=== PATIENT | male | born 1975 | race Caucasian/White ===

== ENCOUNTER → 2018-07-30 | Outpatient (REF) | payer MEDICARE, MEDICAID ==
[2018-07-30 14:21] LABS: HEMATOCRIT 45.2 % (42.0-52.0); HEMOGLOBIN 15.7 g/dl (13.5-17.5); MEAN CORPUSCULAR HGB CONC 34.7 g/dl (32.0-36.5); MEAN CORPUSCULAR VOLUME 83.4 fl (80.0-96.0); PLATELET COUNT, AUTOMATED 218 10^3/uL (150-450); RED BLOOD COUNT 5.42 10^6/uL (4.30-6.10); RED CELL DISTRIBUTION WIDTH 13.3 % (11.5-14.5); WHITE BLOOD COUNT 5.5 10^3/uL (4.0-10.0)
[2018-07-30 14:29] LABS: ADD MANUAL DIFFER YES; DIFF SLIDE NUMBER 263; POSITIVE MORPH POS FLAG
[2018-07-30 15:07] LABS: ATYPICAL LYMPH 7 % (0-5); EOSINOPHILS 1 % (0-5); LYMPHOCYTES 12 % (16-52); MONOCYTES 8 % (0-8); NEUTROPHILS 72 % (35-75)
[2018-07-30 15:11] LABS: BASO # 0.1 10^3/uL (0.0-0.2); BASO % 0.9 % (0.0-1.0); EOS # 0.1 10^3/uL (0.0-0.50); EOS % 1.1 % (0.0-3.0); IMMATURE GRANULOCYTE % 0.2 % (0-3.0); LYMPH # 1.3 10^3/uL (1.5-4.5); LYMPH % 23.9 % (24.0-44.0); MONO # 0.4 10^3/uL (0.0-0.8); MONO % 6.4 % (0.0-5.0); NEUTROPHILS # 3.7 10^3/uL (1.8-7.7); NEUTROPHILS % 67.5 % (36.0-66.0)
[2018-07-30 15:13] LABS: ALBUMIN 3.8 GM/DL (3.2-5.2); ALKALINE PHOSPHATASE 97 U/L (45-117); ALT/SGPT 53 U/L (12-78); ANION GAP 6 MEQ/L (8-16); AST/SGOT 27 U/L (7-37); BILIRUBIN,TOTAL 0.5 MG/DL (0.2-1.0); BLOOD UREA NITROGEN 15 MG/DL (7-18); CARBON DIOXIDE LEVEL 28 MEQ/L (21-32); CHLORIDE LEVEL 109 MEQ/L (98-107); CHOLESTEROL LEVEL 208 MG/DL (<200); CHOLESTEROL RISK RATIO 4.952 (<5); CREATININE FOR GFR 1.37 MG/DL (0.70-1.30); GLOMERULAR FILTRATION RATE > 60.0 (>60); GLUCOSE, FASTING 89 MG/DL (70-100); HDL CHOLESTEROL 42 MG/DL (>40); LDL CHOLESTEROL 143 MG/DL (<100); NON-HDL-C 166 MG/DL; POTASSIUM SERUM 4.1 MEQ/L (3.5-5.1); SODIUM LEVEL 143 MEQ/L (136-145); THYROID STIMULATING HORMONE 0.807 uIU/ML (0.358-3.740); TOTAL 25(OH) VITAMIN D 22.7 NG/ML (30.0-100.0); TOTAL PROTEIN 7.6 GM/DL (6.4-8.2); TRIGLYCERIDES LEVEL 117 MG/DL (<150)
[2018-07-30 15:18] LABS: PLATELET ESTIMATE NORMAL (NORMAL)
== END ==
LOC: M LABDRAW1 14:06
DX: F32.1 Major depressive disorder, single episode, moderate (principal)
CPT/HCPCS: 84443

== ENCOUNTER 2018-09-14 14:32 | Emergency (ER) | payer MEDICARE, MEDICAID ==
[2018-09-14] MEDS: predniSONE 20 MG TAB PO (17:26)
[2018-09-14] MEDS: CYCLOBENZAPRINE 10 MG TAB PO (17:26)
[2018-09-14] MEDS: MORPHINE 10 MG/ML 1ML VIAL (J2270) IM (17:27)
== END 2018-09-14 17:59 | disposition home or self-care (01) ==
LOC: M ED 14:32
DX: M54.41 Lumbago with sciatica, right side (principal); M54.42 Lumbago with sciatica, left side
CPT/HCPCS: J2270

== ENCOUNTER 2018-11-23 12:17 | Emergency (ER) | payer MEDICARE, MEDICAID ==
[~2018-11-23] VITALS: Ht 172.7 cm; Wt 77.3 kg
[~2018-11-23 12:17] MED LIST: CYCL10TA PO; PRED20TA PO
[2018-11-23 12:46] LABS: BASO # 0.1 10^3/uL (0.0-0.2); BASO % 0.7 % (0.0-1.0); EOS # 0.1 10^3/uL (0.0-0.50); EOS % 0.7 % (0.0-3.0); HEMATOCRIT 44.4 % (42.0-52.0); HEMOGLOBIN 16.1 g/dl (13.5-17.5); LYMPH # 1.4 10^3/uL (1.5-4.5); LYMPH % 19.3 % (24.0-44.0); MEAN CORPUSCULAR HEMOGLOBIN 28.8 pg (27.0-33.0); MEAN CORPUSCULAR HGB CONC 36.3 g/dl (32.0-36.5); MEAN CORPUSCULAR VOLUME 79.4 fl (80.0-96.0); MONO # 0.4 10^3/uL (0.0-0.8); MONO % 5.5 % (0.0-5.0); NEUTROPHILS # 5.3 10^3/uL (1.8-7.7); NEUTROPHILS % 73.5 % (36.0-66.0); PLATELET COUNT, AUTOMATED 224 10^3/uL (150-450); RED BLOOD COUNT 5.59 10^6/uL (4.30-6.10); WHITE BLOOD COUNT 7.2 10^3/uL (4.0-10.0)
[2018-11-23 13:25] LABS: ALBUMIN 4.1 GM/DL (3.2-5.2); ALT/SGPT 29 U/L (12-78); BILIRUBIN,DIRECT 0.1 MG/DL (0.0-0.2); BILIRUBIN,TOTAL 0.5 MG/DL (0.2-1.0); BLOOD UREA NITROGEN 19 MG/DL (7-18); CALCIUM LEVEL 9.2 MG/DL (8.5-10.1); CARBON DIOXIDE LEVEL 21 MEQ/L (21-32); CHLORIDE LEVEL 105 MEQ/L (98-107); CK-MB VALUE MASS < 1.0 NG/ML (<3.6); CPK CREATINE PHOSPHOKINASE 123 U/L (39-308); CREATININE FOR GFR 1.36 MG/DL (0.70-1.30); FREE T4 1.04 NG/DL (0.76-1.46); GLOMERULAR FILTRATION RATE > 60.0 (>60); GLUCOSE, FASTING 127 MG/DL (70-100); LIPASE 209 U/L (73-393); MB/CK RELATIVE INDEX 0.81 (< OR =4); NT-PRO BNP 17 PG/ML (<125); POTASSIUM SERUM 4.3 MEQ/L (3.5-5.1); SODIUM LEVEL 138 MEQ/L (136-145); THYROID STIMULATING HORMONE 0.707 uIU/ML (0.358-3.740); TOTAL PROTEIN 7.4 GM/DL (6.4-8.2); TROPONIN I < 0.02 NG/ML (< 0.10)
[2018-11-23] MEDS ORDERED: NS 1,000 ML IV ONE (13:30)
[2018-11-23] MEDS ORDERED: KETOROLAC 30 MG/ML VIAL (J1885) IV ONE (13:45)
[2018-11-23] MEDS ORDERED: ISOVUE-370 76% 100ML VIAL (Q9967) As Ordered ONE (14:09)
--- NOTE | 2018-11-23 14:53 | ECGEPIP ---
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
--- NOTE | 2018-11-23 15:16 | REP ---
CT pulmonary angiogram: With IV contrast. History: Chest pain. Comparison studies: No comparison study Contrast dose: 75 cc's of Isovue [address] technique: Helical scanning is acquired and overlapping 1.5 mm and contiguous 3 mm axial images are reformatted. In addition, maximum intensity projection and multiplanar re-formation images are generated in sagittal and coronal imaging projections. CT pulmonary angiographic findings: There is good opacification of the pulmonary arterial tree. There is no CT evidence of pulmonary embolus. Thoracic aorta shows no evidence of aneurysm or dissection. The left vertebral artery takes a direct aortic origin which is a normal variant. Maximal intensity projection images show no vessel cutoff or filling defect in the pulmonary arterial tree. There is no evidence of hilar or mediastinal mass or adenopathy. No pleural or pericardial effusion is seen. There is a granulomatous calcification in the spleen. No adrenal lesion is seen. The lung andrew are clear. No bony abnormalities seen. Impression: Negative CT pulmonary angiogram with IV contrast. No CT evidence of pulmonary embolus. No active disease. Electronically Signed by Julio Cesar Cordoba MD 11/23/2018 03:08 P
[2018-11-23] MEDS ORDERED: KETO10TAB PO (15:33)
[2018-11-23 16:09] VITALS: BP 125/86
== END 2018-11-23 16:05 | disposition home or self-care (01) ==
LOC: M ED 12:17
DX: M94.0 Chondrocostal junction syndrome [Tietze] (principal); R00.0 Tachycardia, unspecified; R06.02 Shortness of breath; F17.220 Nicotine dependence, chewing tobacco, uncomplicated
CPT/HCPCS: 36415; 71275; 80048; 80076; 82550; 82553; 83690; 83880; 84439; 84443; 84484; 85025; 93005; 93041; 94760; 96361; 96374; 99285; J1885; Q9967

== ENCOUNTER 2019-01-04 15:46 | Emergency (ER) | payer MEDICARE ==
[~2019-01-04] VITALS: Ht 172.7 cm; Wt 77.3 kg
[~2019-01-04 15:46] MED LIST changes: +KETO10TAB PO
[2019-01-04 15:47] VITALS: BP 128/78
[2019-01-04] MEDS ORDERED: hydrocodone (15:55)
[2019-01-04] MEDS ORDERED: PRED20TA PO (16:35)
[2019-01-04] MEDS ORDERED: CYCL10TA PO (16:35)
[2019-01-04] MEDS ORDERED: CYCLOBENZAPRINE 10 MG TAB PO ONE (16:45)
[2019-01-04] MEDS ORDERED: predniSONE 20 MG TAB PO ONE (16:45)
== END 2019-01-04 16:47 | disposition home or self-care (01) ==
LOC: M ED 15:46
DX: M54.5 Low back pain (principal); G89.29 Other chronic pain; Z87.442 Personal history of urinary calculi; Z98.890 Other specified postprocedural states

== ENCOUNTER 2019-06-04 13:18 | Emergency (ER) | payer MEDICARE, MEDICAID ==
[~2019-06-04] VITALS: Ht 172.7 cm; Wt 82.6 kg
[~2019-06-04 13:18] MED LIST changes: +hydrocodone
[2019-06-04] MEDS ORDERED: ACETAMINOPHEN 500 MG TAB PO ONE (14:15)
[2019-06-04] MEDS ORDERED: diazePAM 5 MG TAB PO ONE (14:15)
[2019-06-04] MEDS ORDERED: LIDOCAINE 5% (LIDODERM) PATCH TD ONE (14:15)
[2019-06-04] MEDS ORDERED: KETOROLAC 30 MG/ML VIAL (J1885) IM ONE (14:15)
[2019-06-04] MEDS ORDERED: VALI5TAB PO (14:41)
[2019-06-04] MEDS ORDERED: NAPR-837 PO (14:41)
[2019-06-04 14:58] VITALS: BP 108/61
--- NOTE | 2019-06-04 15:16 | REP ---
LUMBOSACRAL SPINE: Five views of the lumbosacral spine are performed. There is no compression fracture or malalignment. There is normal lumbar lordosis with no spondylolysis or spondylolisthesis. Disc spaces appear well preserved. Posterior elements appear intact of the lumbar region. There is spina bifida occulta of S1 which is a normal variant. IMPRESSION: No fracture or dislocation. Electronically Signed by Jamie Gillis MD 06/08/2019 05:37 P
== END 2019-06-04 15:00 | disposition home or self-care (01) ==
LOC: M ED 13:18
DX: M54.42 Lumbago with sciatica, left side (principal); M54.41 Lumbago with sciatica, right side; W55.89XA Other contact with other mammals, initial encounter; Y92.79 Other farm location as the place of occurrence of the external cause; G89.29 Other chronic pain; M54.9 Dorsalgia, unspecified; F17.220 Nicotine dependence, chewing tobacco, uncomplicated; Z87.442 Personal history of urinary calculi
CPT/HCPCS: 72110; 96372; 99283; J1885

== ENCOUNTER → 2019-12-23 | Outpatient (REF) | payer MEDICARE, MEDICAID ==
[~2019-12-23] MED LIST changes: +NAPR-837 PO; +VALI5TAB PO
[2019-12-23 14:11] LABS: HEMOGLOBIN A1c 4.9 %
[2019-12-23 14:14] LABS: CALCIUM LEVEL 9.1 MG/DL (8.5-10.1); CHOLESTEROL RISK RATIO 5.255 (<5); CREATININE FOR GFR 1.4 MG/DL (0.70-1.30); GLOMERULAR FILTRATION RATE 58.3 (>60); POTASSIUM SERUM 3.8 MEQ/L (3.5-5.1)
== END ==
LOC: M LABDRAW1 11:46
PROVIDERS: ATTEND Student in an Organized Health Care Education/Training Program
DX: Z00.00 Encounter for general adult medical examination without abnormal findings (principal); R20.0 Anesthesia of skin; Z79.899 Other long term (current) drug therapy

== ENCOUNTER → 2021-08-30 | Outpatient (REF) | payer MEDICARE, MEDICAID ==
[~2021-08-30] MED LIST changes: +CYCL-707 PO; -CYCL10TA PO
== END ==
LOC: M SFHCPLAZ 13:44
PROVIDERS: ATTEND Family Medicine
DX: R10.9 Unspecified abdominal pain (principal); K21.9 Gastro-esophageal reflux disease without esophagitis; R07.9 Chest pain, unspecified; Z13.220 Encounter for screening for lipoid disorders; Z13.1 Encounter for screening for diabetes mellitus

== ENCOUNTER → 2021-09-06 | Outpatient (CLI) | payer MEDICARE, MEDICAID ==
[2021-09-06 16:43] LABS: BASO # 0.1 10^3/uL (0.0-0.2); BASO % 0.8 % (0.0-1.0); EOS # 0.1 10^3/uL (0.0-0.5); EOS % 0.9 % (0.0-3.0); HEMATOCRIT 47.5 % (42.0-52.0); HEMOGLOBIN 16.2 g/dl (13.5-17.5); LYMPH # 2.1 10^3/uL (1.5-5.0); LYMPH % 26.3 % (24.0-44.0); MEAN CORPUSCULAR HEMOGLOBIN 28.8 pg (27.0-33.0); MEAN CORPUSCULAR HGB CONC 34.1 g/dl (32.0-36.5); MEAN CORPUSCULAR VOLUME 84.5 fl (80.0-96.0); MONO # 0.7 10^3/uL (0.0-0.8); MONO % 8.7 % (2.0-8.0); PLATELET COUNT, AUTOMATED 262 10^3/uL (150-450); RED BLOOD COUNT 5.62 10^6/uL (4.30-6.10); WHITE BLOOD COUNT 7.8 10^3/uL (4.0-10.0)
[2021-09-06 16:52] LABS: ALBUMIN 4.4 GM/DL (3.2-5.2); BILIRUBIN,TOTAL 0.6 MG/DL (0.2-1.0); CALCIUM LEVEL 9.7 MG/DL (8.5-10.1); CHOLESTEROL RISK RATIO 4.818 (<5); CREATININE FOR GFR 1.42 MG/DL (0.70-1.30); GLOMERULAR FILTRATION RATE 56.9 (>60); POTASSIUM SERUM 4.2 MEQ/L (3.5-5.1); THYROID STIMULATING HORMONE 1.35 uIU/ML (0.358-3.740); TOTAL PROTEIN 8.2 GM/DL (6.4-8.2)
[2021-09-06 17:06] LABS: HEMOGLOBIN A1c 4.9 %
== END ==
LOC: M WUC 11:33
PROVIDERS: ATTEND Student in an Organized Health Care Education/Training Program
DX: Z13.220 Encounter for screening for lipoid disorders (principal); Z13.1 Encounter for screening for diabetes mellitus; R10.9 Unspecified abdominal pain; K21.9 Gastro-esophageal reflux disease without esophagitis; R07.9 Chest pain, unspecified; Z79.899 Other long term (current) drug therapy

== ENCOUNTER → 2021-09-24 | Outpatient (CLI) | payer MEDICARE, MEDICAID ==
--- NOTE | 2021-09-24 14:37 | REP ---
INDICATION: LEFT FLANK PAIN. COMPARISON: None. TECHNIQUE: Real-time sonographic evaluation of the kidneys with Doppler FINDINGS: Multiple ultrasonographic images of the right kidney show the right kidney to measure 10.3 x 5.5 x 5.3 cm. The renal cortical echotexture is unremarkable. There are no masses. There is good corticomedullary differentiation. There is no hydronephrosis. There are no perinephric fluid collections. Multiple ultrasonographic images of the left kidney show the left kidney to measure 10.4 x 4.5 x 4.1 cm. The renal cortical echotexture is unremarkable. There are no masses. There is good corticomedullary differentiation. There is no hydronephrosis. There are no perinephric fluid collections. The urinary bladder was almost empty IMPRESSION: Unremarkable renal ultrasonography. <Electronically signed by Zeke Tirado > 09/24/21 [id number]
== END ==
LOC: M RAD 13:52
PROVIDERS: ATTEND Student in an Organized Health Care Education/Training Program
DX: R10.9 Unspecified abdominal pain (principal)

== ENCOUNTER → 2021-10-09 | Outpatient (REF) | payer MEDICARE, MEDICAID ==
[2021-10-09 13:59] LABS: APPEARANCE, URINE CLEAR (CLEAR); BACTERIA, URINE AUTO NEGATIVE (NEGATIVE); BILIRUBIN, URINE AUTO NEGATIVE (NEGATIVE); BLOOD, URINE BLOOD NEGATIVE (NEGATIVE); COLOR, URINE YELLOW (YELLOW); GLUCOSE, URINE (UA) AUTO NEGATIVE (NEGATIVE); KETONE, URINE AUTO NEGATIVE (NEGATIVE); LEUKOCYTE ESTERASE, URINE AUTO NEGATIVE (NEGATIVE); NITRITE, URINE AUTO NEGATIVE (NEGATIVE); PROTEIN, URINE AUTO NEGATIVE (NEGATIVE); RBC, URINE AUTO 0 /HPF (0-3); SPECIFIC GRAVITY URINE AUTO 1.021 (1.002-1.035); SQUAMOUS EPITHELIAL CELL UR AU 0 /HPF (0-6); UROBILINOGEN, URINE AUTO 0.2 mg/dL (0.0-2.0); WBC, URINE AUTO 1 /HPF (0-3)
[2021-10-09 14:29] LABS: MALB URINE SIEMENS 5.1 MG/L; MAU/CREAT RATIO 2.6 MCG/MG (0.0-30.0)
== END ==
LOC: M SFHCPLAZ 13:17
PROVIDERS: ATTEND Student in an Organized Health Care Education/Training Program
DX: N18.31 Chronic kidney disease, stage 3a (principal)
CPT/HCPCS: 81001; 82043; G0463

== ENCOUNTER → 2022-12-05 | Outpatient (CLI) | payer MEDICARE, MEDICAID ==
[2022-12-05 17:54] LABS: BASO % 0.6 % (0.0-1.0); EOS % 0.6 % (0.0-3.0); HEMATOCRIT 50.1 % (42.0-52.0); HEMOGLOBIN 16.8 g/dl (13.5-17.5); LYMPH # 1.8 10^3/uL (1.5-5.0); LYMPH % 26.8 % (24.0-44.0); MEAN CORPUSCULAR HEMOGLOBIN 27.9 pg (27.0-33.0); MEAN CORPUSCULAR HGB CONC 33.5 g/dl (32.0-36.5); MEAN CORPUSCULAR VOLUME 83.1 fl (80.0-96.0); MONO # 0.4 10^3/uL (0.0-0.8); MONO % 6.6 % (2.0-8.0); NEUTROPHILS # 4.3 10^3/uL (1.5-8.5); NEUTROPHILS % 65.2 % (36.0-66.0); PLATELET COUNT, AUTOMATED 262 10^3/uL (150-450); RED BLOOD COUNT 6.03 10^6/uL (4.30-6.10); WHITE BLOOD COUNT 6.5 10^3/uL (4.0-10.0)
[2022-12-05 18:05] LABS: HEMOGLOBIN A1c 4.7 % (4.0-6.0)
[2022-12-05 18:13] LABS: ALBUMIN 4.2 G/DL (3.2-5.2); ALKALINE PHOSPHATASE 119 U/L (46-116); ALT/SGPT 51 U/L (7.0-40); AST/SGOT 27 U/L (<34); BILIRUBIN,TOTAL 0.6 MG/DL (0.3-1.2); BLOOD UREA NITROGEN 14 MG/DL (9-23); CALCIUM LEVEL 9.3 MG/DL (8.5-10.1); CARBON DIOXIDE LEVEL 30 MMOL/L (20-31); CHLORIDE LEVEL 101 MMOL/L (98-107); CHOLESTEROL LEVEL 193 MG/DL (<200); CHOLESTEROL RISK RATIO 4.93 (<5); CREATININE FOR GFR 1.31 MG/DL (0.70-1.30); GLOMERULAR FILTRATION RATE > 60.0 (>60); GLUCOSE, FASTING 83 MG/DL (60-100); HDL CHOLESTEROL 39.1 MG/DL (>40); LDL CHOLESTEROL 130.3 MG/DL (<100); NON-HDL-C 154 MG/DL; POTASSIUM SERUM 4.6 MMOL/L (3.5-5.1); SODIUM LEVEL 138 MMOL/L (136-145); TOTAL PROTEIN 7.9 G/DL (5.7-8.2); TRIGLYCERIDES LEVEL 118 MG/DL (<150)
== END ==
LOC: M PLALAB 15:04
PROVIDERS: ATTEND Student in an Organized Health Care Education/Training Program
DX: Z13.1 Encounter for screening for diabetes mellitus (principal); N18.31 Chronic kidney disease, stage 3a; K21.9 Gastro-esophageal reflux disease without esophagitis; E78.00 Pure hypercholesterolemia, unspecified

== ENCOUNTER → 2023-02-18 | Outpatient (REF) | payer MEDICARE, MEDICAID ==
[2023-02-18 18:18] LABS: APPEARANCE, URINE CLEAR (CLEAR); BACTERIA, URINE AUTO NEGATIVE (NEGATIVE); BILIRUBIN, URINE AUTO NEGATIVE (NEGATIVE); BLOOD, URINE BLOOD NEGATIVE (NEGATIVE); COLOR, URINE YELLOW (YELLOW); GLUCOSE, URINE (UA) AUTO NEGATIVE (NEGATIVE); KETONE, URINE AUTO TRACE mg/dL (NEGATIVE); LEUKOCYTE ESTERASE, URINE AUTO NEGATIVE (NEGATIVE); MUCUS, URINE SMALL (NEGATIVE); NITRITE, URINE AUTO NEGATIVE (NEGATIVE); PROTEIN, URINE AUTO NEGATIVE (NEGATIVE); RBC, URINE AUTO 0 /HPF (0-3); SPECIFIC GRAVITY URINE AUTO 1.026 (1.002-1.035); SQUAMOUS EPITHELIAL CELL UR AU 0 /HPF (0-6); UROBILINOGEN, URINE AUTO 0.2 mg/dL (0.0-2.0); WBC, URINE AUTO 0 /HPF (0-3)
== END ==
LOC: M SFHCPLAZ 17:14
PROVIDERS: ATTEND Student in an Organized Health Care Education/Training Program
DX: R30.0 Dysuria (principal)

== ENCOUNTER → 2023-02-25 | Outpatient (REF) | payer MEDICARE, MEDICAID ==
[~2023-02-25] MED LIST changes: +ATOR1TAB19; +FAMO20TA5; +METH-1165 PO
== END ==
LOC: M SFHCPLAZ 13:24
PROVIDERS: ATTEND Family Medicine
DX: R30.0 Dysuria (principal); E78.00 Pure hypercholesterolemia, unspecified; Z53.9 Procedure and treatment not carried out, unspecified reason

== ENCOUNTER → 2023-02-25 | Outpatient (CLI) | payer MEDICARE, MEDICAID ==
[~2023-02-25] MED LIST changes: -ATOR1TAB19; -FAMO20TA5; -METH-1165 PO
[2023-02-25 16:04] LABS: BASO % 0.4 % (0.0-1.0); EOS % 0.6 % (0.0-3.0); HEMATOCRIT 46.4 % (42.0-52.0); LYMPH # 1.6 10^3/uL (1.5-5.0); LYMPH % 23.4 % (24.0-44.0); MEAN CORPUSCULAR HEMOGLOBIN 28.6 pg (27.0-33.0); MEAN CORPUSCULAR HGB CONC 34.5 g/dl (32.0-36.5); MONO # 0.4 10^3/uL (0.0-0.8); MONO % 6.1 % (2.0-8.0); NEUTROPHILS # 4.7 10^3/uL (1.5-8.5); NEUTROPHILS % 69.2 % (36.0-66.0); PLATELET COUNT, AUTOMATED 217 10^3/uL (150-450); RED BLOOD COUNT 5.59 10^6/uL (4.30-6.10); WHITE BLOOD COUNT 6.8 10^3/uL (4.0-10.0)
[2023-02-25 16:32] LABS: ALBUMIN 4.3 G/DL (3.2-5.2); ALKALINE PHOSPHATASE 97 U/L (46-116); ALT/SGPT 35 U/L (7.0-40); AST/SGOT 18 U/L (<34); BILIRUBIN,TOTAL 0.5 MG/DL (0.3-1.2); BLOOD UREA NITROGEN 17 MG/DL (9-23); CALCIUM LEVEL 9.6 MG/DL (8.5-10.1); CARBON DIOXIDE LEVEL 28 MMOL/L (20-31); CHLORIDE LEVEL 106 MMOL/L (98-107); CHOLESTEROL LEVEL 203 MG/DL (<200); CHOLESTEROL RISK RATIO 4.82 (<5); CREATININE FOR GFR 1.35 MG/DL (0.70-1.30); GLOMERULAR FILTRATION RATE > 60.0 (>60); GLUCOSE, FASTING 83 MG/DL (60-100); HDL CHOLESTEROL 42.1 MG/DL (>40); LDL CHOLESTEROL 134.9 MG/DL (<100); NON-HDL-C 160.9 MG/DL; POTASSIUM SERUM 4.2 MMOL/L (3.5-5.1); SODIUM LEVEL 140 MMOL/L (136-145); TOTAL PROTEIN 7.6 G/DL (5.7-8.2); TRIGLYCERIDES LEVEL 130 MG/DL (<150)
== END ==
LOC: M PLALAB 13:24
PROVIDERS: ATTEND Student in an Organized Health Care Education/Training Program
DX: R30.0 Dysuria (principal)

== ENCOUNTER 2023-03-03 07:33 | Emergency (ER) | payer MEDICARE, MEDICAID ==
[~2023-03-03] VITALS: Ht 172.7 cm; Wt 93.0 kg
[2023-03-03] MEDS ORDERED: FAMO20TA5 (07:41)
[2023-03-03] MEDS ORDERED: ATOR1TAB19 (07:41)
[2023-03-03] MEDS ORDERED: KETOROLAC 60MG 2ML VIAL IM ONE (07:50)
[2023-03-03] MEDS ORDERED: diazePAM 10MG/2ML SYRINGE IM ONE (07:50)
[2023-03-03] MEDS ORDERED: KETO10TAB PO (08:59)
[2023-03-03] MEDS ORDERED: METH-1165 PO (08:59)
[2023-03-03 09:20] VITALS: BP 125/78
== END 2023-03-03 09:23 | disposition home or self-care (01) ==
LOC: M ED 07:33
DX: M62.830 Muscle spasm of back (principal); E78.5 Hyperlipidemia, unspecified; Z87.442 Personal history of urinary calculi; Z79.02 Long term (current) use of antithrombotics/antiplatelets; Z79.899 Other long term (current) drug therapy
CPT/HCPCS: 96372; 99283; J1885; J3360

== ENCOUNTER → 2023-03-06 | Outpatient (CLI) | payer MEDICARE, MEDICAID ==
[~2023-03-06] MED LIST changes: +ATOR1TAB19; +FAMO20TA5; +METH-1165 PO
== END ==
LOC: M WHC 11:22
PROVIDERS: ATTEND Student in an Organized Health Care Education/Training Program
DX: R10.12 Left upper quadrant pain (principal)

== ENCOUNTER → 2023-03-13 | Outpatient (CLI) | payer MEDICARE, MEDICAID | LOC: M SOG 09:11 | PROVIDERS: ATTEND Orthopaedic Surgery | DX: M54.50 Low back pain, unspecified (principal) ==

== ENCOUNTER → 2023-03-19 | Outpatient (CLI) | payer MEDICARE, MEDICAID | LOC: M RAD 13:03 | PROVIDERS: ATTEND Student in an Organized Health Care Education/Training Program | DX: R10.9 Unspecified abdominal pain (principal) ==

== ENCOUNTER → 2023-04-24 | Outpatient (CLI) | payer MEDICARE, MEDICAID ==
[~2023-04-24] MED LIST changes: +GASTROGRAFIN SOLUTION 30ML As Ordered ONE
== END ==
LOC: M RAD 07:38
PROVIDERS: ATTEND Student in an Organized Health Care Education/Training Program
DX: R10.12 Left upper quadrant pain (principal); N18.31 Chronic kidney disease, stage 3a
CPT/HCPCS: 74150; 76700; Q9963

== ENCOUNTER → 2024-03-08 | Outpatient (CLI) | payer MEDICARE, MEDICAID ==
[~2024-03-08] MED LIST changes: -GASTROGRAFIN SOLUTION 30ML As Ordered ONE
[2024-03-08 15:57] LABS: BASO # 0.1 10^3/uL (0.0-0.2); EOS # 0.1 10^3/uL (0.0-0.5); EOS % 1.3 % (0.0-3.0); HEMATOCRIT 47.1 % (42.0-52.0); HEMOGLOBIN 16.3 g/dl (13.5-17.5); LYMPH # 1.3 10^3/uL (1.5-5.0); LYMPH % 21.1 % (24.0-44.0); MEAN CORPUSCULAR HEMOGLOBIN 29.1 pg (27.0-33.0); MEAN CORPUSCULAR HGB CONC 34.6 g/dl (32.0-36.5); MONO # 0.6 10^3/uL (0.0-0.8); MONO % 10.1 % (2.0-8.0); NEUTROPHILS # 4.2 10^3/uL (1.5-8.5); NEUTROPHILS % 66.3 % (36.0-66.0); PLATELET COUNT, AUTOMATED 226 10^3/uL (150-450); RED BLOOD COUNT 5.61 10^6/uL (4.30-6.10); WHITE BLOOD COUNT 6.3 10^3/uL (4.0-10.0)
[2024-03-08 16:31] LABS: HEMOGLOBIN A1c 4.8 % (4.0-6.0)
[2024-03-08 16:32] LABS: ALBUMIN 3.7 G/DL (3.2-5.2); ALKALINE PHOSPHATASE 99 U/L (46-116); ALT/SGPT 46 U/L (7.0-40); AST/SGOT 24 U/L (<34); BILIRUBIN,TOTAL 0.7 MG/DL (0.3-1.2); BLOOD UREA NITROGEN 16 MG/DL (9-23); CALCIUM LEVEL 9.5 MG/DL (8.5-10.1); CARBON DIOXIDE LEVEL 29 MMOL/L (20-31); CHLORIDE LEVEL 106 MMOL/L (98-107); CHOLESTEROL LEVEL 221 MG/DL (<200); CHOLESTEROL RISK RATIO 5.32 (<5); CREATININE FOR GFR 1.49 MG/DL (0.70-1.30); GLOMERULAR FILTRATION RATE 53.4 (>60); GLUCOSE, FASTING 92 MG/DL (60-100); HDL CHOLESTEROL 41.5 MG/DL (>40); LDL CHOLESTEROL 157.5 MG/DL (<100); NON-HDL-C 179.5 MG/DL; POTASSIUM SERUM 5.3 MMOL/L (3.5-5.1); SODIUM LEVEL 139 MMOL/L (136-145); TOTAL PROTEIN 7.3 G/DL (5.7-8.2); TRIGLYCERIDES LEVEL 110 MG/DL (<150)
[2024-03-08 16:34] LABS: THYROID STIMULATING HORMONE 0.924 uIU/ML (0.55-4.78)
[2024-03-08 16:35] LABS: FREE T4 1.22 NG/DL (0.89-1.76)
[2024-03-08 17:00] LABS: HIV 1&2 SCREEN NEGATIVE (NEGATIVE)
[2024-03-08 17:07] LABS: HEPATITIS C VIRUS ABY INDEX 0.02 INDEX (<0.8)
== END ==
LOC: M PLALAB 12:01
PROVIDERS: ATTEND Student in an Organized Health Care Education/Training Program
DX: Z12.11 Encounter for screening for malignant neoplasm of colon (principal); K76.0 Fatty (change of) liver, not elsewhere classified; Z79.899 Other long term (current) drug therapy; Z72.0 Tobacco use; R22.9 Localized swelling, mass and lump, unspecified; N18.31 Chronic kidney disease, stage 3a; K21.9 Gastro-esophageal reflux disease without esophagitis; E55.9 Vitamin D deficiency, unspecified

== ENCOUNTER → 2024-12-24 | Outpatient (CLI) | payer MEDICARE, MEDICAID ==
[2024-12-24 19:33] LABS: BASO # 0.1 10^3/uL (0.0-0.2); BASO % 0.8 % (0.0-1.0); EOS # 0.1 10^3/uL (0.0-0.5); EOS % 1.2 % (0.0-3.0); HEMOGLOBIN 16.1 g/dl (13.5-17.5); LYMPH # 1.5 10^3/uL (1.5-5.0); LYMPH % 24.9 % (24.0-44.0); MEAN CORPUSCULAR HEMOGLOBIN 28.9 pg (27.0-33.0); MEAN CORPUSCULAR HGB CONC 34.3 g/dl (32.0-36.5); MEAN CORPUSCULAR VOLUME 84.2 fl (80.0-96.0); MONO # 0.4 10^3/uL (0.0-0.8); MONO % 7.2 % (2.0-8.0); NEUTROPHILS # 3.9 10^3/uL (1.5-8.5); NEUTROPHILS % 65.7 % (36.0-66.0); PLATELET COUNT, AUTOMATED 210 10^3/uL (150-450); RED BLOOD COUNT 5.58 10^6/uL (4.30-6.10)
[2024-12-24 20:02] LABS: ALKALINE PHOSPHATASE 127 U/L (40-129); ALT/SGPT 47 U/L (7.0-40); AST/SGOT 20 U/L (<34); BILIRUBIN,TOTAL 0.9 MG/DL (0.3-1.2); BLOOD UREA NITROGEN 13 MG/DL (9-23); CALCIUM LEVEL 9.4 MG/DL (8.5-10.1); CARBON DIOXIDE LEVEL 28 MMOL/L (20-31); CHLORIDE LEVEL 103 MMOL/L (98-107); CHOLESTEROL LEVEL 165 MG/DL (<200); CHOLESTEROL RISK RATIO 3.79 (<5); CREATININE FOR GFR 1.34 MG/DL (0.70-1.30); GLOMERULAR FILTRATION RATE > 60.0 (>56); GLUCOSE, FASTING 88 MG/DL (60-100); HDL CHOLESTEROL 43.5 MG/DL (>40); LDL CHOLESTEROL 99.9 MG/DL (<100); NON-HDL-C 121.5 MG/DL; POTASSIUM SERUM 4.3 MMOL/L (3.5-5.1); SODIUM LEVEL 141 MMOL/L (136-145); TOTAL PROTEIN 7.6 G/DL (5.7-8.2); TRIGLYCERIDES LEVEL 108 MG/DL (<150)
[2024-12-24 20:03] LABS: HEMOGLOBIN A1c 4.7 % (4.0-6.0)
== END ==
LOC: M PLALAB 14:47
PROVIDERS: ATTEND Student in an Organized Health Care Education/Training Program
DX: F17.200 Nicotine dependence, unspecified, uncomplicated (principal); Z79.899 Other long term (current) drug therapy

== ENCOUNTER → 2025-08-24 | Outpatient (CLI) | payer MEDICARE, MEDICAID ==
[~2025-08-24] MED LIST changes: +ATOR40TA75 PO; +OMEP40CA5 PO
[2025-08-24 15:54] LABS: BASO # 0.1 10^3/uL (0.0-0.2); BASO % 1.0 % (0.0-1.0); EOS # 0.1 10^3/uL (0.0-0.5); EOS % 1.4 % (0.0-3.0); LYMPH # 1.6 10^3/uL (1.5-5.0); LYMPH % 27.2 % (24.0-44.0); MONO # 0.4 10^3/uL (0.0-0.8); MONO % 6.3 % (2.0-8.0); NEUTROPHILS # 3.8 10^3/uL (1.5-8.5); NEUTROPHILS % 63.8 % (36.0-66.0); PLATELET COUNT, AUTOMATED 222 10^3/uL (150-450)
[2025-08-24 16:13] LABS: ESTIMATED AVERAGE GLUCOSE 97.0 MG/DL (60-110)
[2025-08-24 16:36] LABS: ALT/SGPT 36.0 U/L (7.0-40); AST/SGOT 21.0 U/L (<34); CALCIUM LEVEL 9.6 MG/DL (8.5-10.1); CARBON DIOXIDE LEVEL 29.0 MMOL/L (20-31); CHLORIDE LEVEL 105.0 MMOL/L (98-107); CHOLESTEROL LEVEL 224.0 MG/DL (<200); CHOLESTEROL RISK RATIO 4.73 (<5); CREATININE FOR GFR 1.42 MG/DL (0.70-1.30); GLOMERULAR FILTRATION RATE 59.8 (>56); LDL CHOLESTEROL 154.3 MG/DL (<100); NON-HDL-C 176.7 MG/DL; POTASSIUM SERUM 5.2 MMOL/L (3.5-5.1); SODIUM LEVEL 143.0 MMOL/L (136-145); TRIGLYCERIDES LEVEL 112.0 MG/DL (<150)
== END ==
LOC: M PLALAB 12:55
PROVIDERS: ATTEND Student in an Organized Health Care Education/Training Program
DX: Z00.00 Encounter for general adult medical examination without abnormal findings (principal); R07.89 Other chest pain; R06.02 Shortness of breath; Z79.899 Other long term (current) drug therapy